=== PATIENT | male | born 1995 | race Caucasian/White ===

== ENCOUNTER 2020-07-08 07:13 | Emergency (ER) | payer OTHER, SELFPAY ==
[2020-07-08 08:23] VITALS: BP 185/95; PULSE 112; RESP 16; TEMP 37.1; O2SAT 99; BMI 31.3
--- NOTE | 2020-07-08 08:30 | ED.ABDPAIN ---
HPI - Abdominal Pain General Chief Complaint: Abdominal Pain Stated Complaint: abd pain,vomiting Time Seen by Provider: 07/08/20 08:29 Source: patient Mode of arrival: ambulatory Limitations: no limitations History of Present Illness MD elicited complaint: abdominal pain Pertinent past history: other (pancreatitis) Onset (ago): day(s) (2) Pain Consistency: constant Location: epigastric Severity: similar to previous episodes Quality: stabbing Radiation: epigastric Migration to: no migration Exacerbating factors: vomiting and movement Relieving factors: nothing Context: history of similar episodes and other (drank for 2 days prior) Associated symptoms: nausea and vomiting Related Data Previous Rx's Medication Instructions Recorded chlordiazepoxide HCl 25 mg PO Q6-8H PRN #20 cap 07/08/20 famotidine [Pepcid] 20 mg PO DAILY PRN #30 tab 07/08/20 magnesium oxide 400 mg PO DAILY 10 Days #10 tab 07/08/20 ondansetron 4 mg PO Q8H PRN #20 tab 07/08/20 Allergies Allergy/AdvReac Type Severity Reaction Status Date / Time No Known Allergies Allergy Verified 07/08/20 08:36 Review of Systems Review of Systems Constitutional : No Weight loss, No Fever, No Chills ENT/Mouth : No sore throat, No Rhinorrhea Eyes: No Swelling, No Redness Cardiovascular : No Chest Pain, No SOB, NoEdema Respiratory : No Cough, No Sputum, No Wheezing Gastrointestinal : Positive Nausea, Positive Vomiting, no Diarrhea, positive abdominal Pain, No Hematochezia, No Melena Genitourinary : No Dysuria, No Urinary Frequency, No Hematuria, No Urgency Musculoskeletal : No joint pain, No Myalgias, No Joint Swelling Skin : No Skin Lesions, No rash Neuro : No Weakness, No Numbness, No Dizziness, No Headache Psych : No Anxiety/Panic, No Depression Heme/Lymph: No Bruising, No Lymphadenopathy Endocrine : No Polyuria, No Polydipsia All other systems reviewed and are negative. Physical Exam Vital Signs: Vital Signs: Last Vital Signs Temp 98.8 F 07/08/20 08:23 Pulse 123 H 07/08/20 11:02 Resp 18 07/08/20 11:02 BP 147/75 H 07/08/20 11:02 Pulse Ox 99 07/08/20 08:23 Body Mass Index 31.3 Appearance: Alert. Oriented X3. active vomiting, mild acute distress. Eyes: Pupils equal, round and reactive to light. ENT: Pharynx normal. Neck: Normal inspection. Neck supple. CVS: Normal heart rate and rhythm. Pulses normal. Respiratory: No respiratory distress. Breath sounds normal. Abdomen: Soft and moderate epigastric ttp Skin: Skin warm and dry. Normal skin color. Normal skin turgor. Extremities: No lower extremity edema. No calf ttp Neuro: Oriented X 3. No motor deficit. No sensory deficit. Course Course Course Narrative: feels better, can tolerate PO stable for DC, no anxiety, no tremors, VS improved MDM - Abdominal Pain MDM Narrative Medical decision making narrative: 24 yo male with hx of pancreatitis, denies alcoholism but did drink two days prior to epigastric pain and vomiting starting will need labs, IVF, CT scan for pancreatitis, IV morphine for pain, dispo per results and findings Lab Data Result diagrams: 07/08/20 08:48 07/08/20 08:47 Labs: Lab Results 07/08/20 07/08/20 07/08/20 Range/Units 08:47 08:47 08:48 WBC 8.9 (4.8-10.8) X10*3/uL RBC 5.81 H (4.60-5.80) X10*6/uL Hgb 16.8 (14.0-18.0) g/dl Hct 52.7 H (42-52) % MCV 90.7 (80-98) fL MCH 28.9 (27.0-33.0) pg MCHC 31.9 (31.0-36.0) g/dl RDW 15.6 (11.0-16.0) % Plt Count 395 (160-400) X10*3/uL MPV 9.2 L (9.4-12.4) fL Immature Gran % (Auto) 0.9 H (0.0-0.4) % Neut % (Auto) 88.3 H (45-73) % Lymph % (Auto) 6.5 L (20-40) % [place] % (Auto) 3.1 (2-11) % Eos % (Auto) 0.0 (0-4) % Baso % (Auto) 1.2 (0-2) % Lymph # (Auto) 0.6 L (1.2-4.9) X10*3/uL [place] # (Auto) 0.3 (0.1-1.2) X10*3/uL Eos # (Auto) 0.0 (0.0-0.4) X10*3/uL Baso # (Auto) 0.1 (0.0-0.2) X10*3/uL Abs Immat Gran (auto) 0.08 H (0.00-0.03) X10*3/uL Absolute Neuts (auto) 7.9 (2.0-8.3) X10*3/uL Absolute Nucleated RBC 0.000 (0.0-0.012) X10*3/uL Nucleated RBC % (auto) 0.0 (0.0-0.2) /100WBC Hold Blue Top Sodium 140 (135-145) mmol/L Potassium 5.6 H (3.3-5.1) mmol/l Chloride 100 (96-108) mmol/L Carbon Dioxide 25 (22-29) mmol/L Anion Gap 21 H (12-20) BUN 8 L (9-16) mg/dL Creatinine 1.03 (0.5-1.4) mg/dL Estim Creat Clear Calc 116.7 Estimated GFR > 60 Random Glucose 149 H (60-115) mg/dL Calcium 9.3 (8.4-10.2) mg/dL Magnesium 1.3 L* (1.6-2.6) mg/dL Total Bilirubin 0.6 (0.0-1.0) mg/dL Direct Bilirubin 0.3 (0.0-0.5) mg/dL AST 43 H (5-37) U/L ALT 47 H (0-40) U/L Alkaline Phosphatase 49 (39-117) U/L Lactate Dehydrogenase 260 (118-273) U/L Total Protein 7.2 (6.5-8.0) g/dL Albumin 4.7 (3.5-5.0) g/dL Lipase 42 (8-78) U/L Ethyl Alcohol < 10 mg/dL 07/08/20 Range/Units 08:48 WBC (4.8-10.8) X10*3/uL RBC (4.60-5.80) X10*6/uL Hgb (14.0-18.0) g/dl Hct (42-52) % MCV (80-98) fL MCH (27.0-33.0) pg MCHC (31.0-36.0) g/dl RDW (11.0-16.0) % Plt Count (160-400) X10*3/uL MPV (9.4-12.4) fL Immature Gran % (Auto) (0.0-0.4) % Neut % (Auto) (45-73) % Lymph % (Auto) (20-40) % [place] % (Auto) (2-11) % Eos % (Auto) (0-4) % Baso % (Auto) (0-2) % Lymph # (Auto) (1.2-4.9) X10*3/uL [place] # (Auto) (0.1-1.2) X10*3/uL Eos # (Auto) (0.0-0.4) X10*3/uL Baso # (Auto) (0.0-0.2) X10*3/uL Abs Immat Gran (auto) (0.00-0.03) X10*3/uL Absolute Neuts (auto) (2.0-8.3) X10*3/uL Absolute Nucleated RBC (0.0-0.012) X10*3/uL Nucleated RBC % (auto) (0.0-0.2) /100WBC Hold Blue Top SEE NOTE Sodium (135-145) mmol/L Potassium (3.3-5.1) mmol/l Chloride (96-108) mmol/L Carbon Dioxide (22-29) mmol/L Anion Gap (12-20) BUN (9-16) mg/dL Creatinine (0.5-1.4) mg/dL Estim Creat Clear Calc Estimated GFR Random Glucose (60-115) mg/dL Calcium (8.4-10.2) mg/dL Magnesium (1.6-2.6) mg/dL Total Bilirubin (0.0-1.0) mg/dL Direct Bilirubin (0.0-0.5) mg/dL AST (5-37) U/L ALT (0-40) U/L Alkaline Phosphatase (39-117) U/L Lactate Dehydrogenase (118-273) U/L Total Protein (6.5-8.0) g/dL Albumin (3.5-5.0) g/dL Lipase (8-78) U/L Ethyl Alcohol mg/dL Discharge Plan Discharge Clinical Impression: Hypomagnesemia Vomiting Qualifiers: Vomiting type: unspecified Vomiting Intractability: non-intractable Nausea presence: with nausea Qualified Code(s): R11.2 - Nausea with vomiting, unspecified Gastritis Qualifiers: Gastritis type: alcoholic Chronicity: acute Gastritis bleeding: without bleeding Qualified Code(s): K29.20 - Alcoholic gastritis without bleeding Patient Disposition: Home, Self-Care Instructions: Gastritis (ED), Hypomagnesemia (ED) Additional Instructions: return to ED for any worsening symptoms or concerns please follow up with your doctor Prescriptions: New ondansetron 4 mg tablet,disintegrating 4 mg PO Q8H PRN (Reason: nausea and vomiting) Qty: 20 RF: 0 famotidine [Pepcid] 20 mg tablet 20 mg PO DAILY PRN (Reason: abdominal discomfort) Qty: 30 RF: 0 chlordiazepoxide HCl 25 mg capsule 25 mg PO Q6-8H PRN (Reason: alcohol withdrawal) Qty: 20 RF: 0 magnesium oxide 400 mg magnesium tablet 400 mg PO DAILY 10 Days Qty: 10 RF: 0 Stand Alone Forms: Work/School Release [facility] Past Medical History Attestation statement: The following information was validated with the patient. Medical History Pancreatitis Social History Social History (Updated 07/08/20 @ 08:42 by Margaret Romero DO) Alcohol intake: current Smoking Status: Current every day smoker Advance Directives: No Advance Directives Information Provided: Yes
--- NOTE | 2020-07-08 08:36 | CT_ITS ---
EXAMINATION: CT ABDOMEN AND PELVIS WITH CONTRAST CLINICAL INFORMATION: Vomiting. Upper abdominal pain. COMPARISON: None TECHNIQUE: Multidetector volumetric images were obtained from the superior aspect of the liver through the pubic symphysis following administration 85 mL of Omnipaque 350 intravenous contrast. Sagittal and coronal reformatted images were obtained on the technologist's workstation. Oral contrast: No This CT examination was performed using dose optimization techniques as appropriate, variously including the following: *Automated exposure control *Adjustment of mA and/or kV according to patient size (this includes techniques or standardized protocols for targeted exams where dose is matched to indication/reason for exam; i.e. extremities or head) *Use of iterative reconstruction technique DLP: 488 mGy-cm FINDINGS: LUNG BASES: The visualized lung bases are unremarkable. LIVER, GALLBLADDER, AND BILIARY TREE: The liver is normal in size, shape, and attenuation. No focal hepatic lesion or biliary ductal dilatation is present. The gallbladder is unremarkable with no evidence of radiopaque gallstones, gallbladder wall thickening, or obvious pericholecystic inflammatory changes. PANCREAS: Unremarkable. SPLEEN: Unremarkable. ADRENAL GLANDS: Unremarkable. KIDNEYS AND URETERS: The kidneys are normal in size and shape. High attenuation noted throughout the medullary pyramids of both kidneys, which may represent medullary nephrocalcinosis. No hydronephrosis, hydroureter, or calculi seen. No perinephric stranding. BLADDER: Unremarkable. GASTROINTESTINAL TRACT: The stomach is unremarkable. Normal caliber small bowel. There is no obstruction. Normal appendix. No colonic wall thickening or acute inflammatory changes. No free air or free fluid. ABDOMINAL WALL: No significant hernia is appreciated. LYMPH NODES: Normal. VASCULAR: Unremarkable. PELVIC VISCERA: The prostate and seminal vesicles are unremarkable. OSSEOUS STRUCTURES: Unremarkable. CT/CT abdomen pelvis w con IMPRESSION: No acute findings of the abdomen or pelvis. No inflammatory changes. High attenuation seen involving the medullary pyramids of both kidneys. This may represent medullary nephrocalcinosis.
[2020-07-08] MEDS: 0.9 % Sodium Chloride 1,000 ML 999 ML IVCONT ×2 (08:54→11:20)
[2020-07-08 08:56] LABS: Basophils Absolute Auto 0.1 X10*3/uL (0.0-0.2); Basophils Percent Auto 1.2 % (0-2); Hematocrit 52.7 % (42-52); Hemoglobin 16.8 g/dl (14.0-18.0); Imm Gran Abs Auto 0.08 X10*3/uL (0.00-0.03); Imm Gran Pct Auto 0.9 % (0.0-0.4); Lymphocytes Absolute Auto 0.6 X10*3/uL (1.2-4.9); Lymphocytes Percent Auto 6.5 % (20-40); MANUAL DIFF FLAG NO; Mean Corpuscular HGB Conc 31.9 g/dl (31.0-36.0); Mean Corpuscular Hemoglobin 28.9 pg (27.0-33.0); Mean Corpuscular Volume 90.7 fL (80-98); Mean Platelet Volume 9.2 fL (9.4-12.4); Monocytes Absolute Auto 0.3 X10*3/uL (0.1-1.2); Monocytes Percent Auto 3.1 % (2-11); Neutrophils Absolute Auto 7.9 X10*3/uL (2.0-8.3); Neutrophils Percent Auto 88.3 % (45-73); Platelet Count 395 X10*3/uL (160-400); Red Blood Count 5.81 X10*6/uL (4.60-5.80); Red Cell Distribution Width 15.6 % (11.0-16.0); SCAN SMEAR FLAG 1; White Blood Count 8.9 X10*3/uL (4.8-10.8)
[2020-07-08 08:57] VITALS: RESP 16
[2020-07-08] MEDS: Morphine Sulfate 4 MG/ML CARTRIDGE IVPUSH (08:57)
[2020-07-08] MEDS: LORazepam 2 MG/ML VIAL 1 MG IVPUSH (08:58)
[2020-07-08] MEDS: ondansetron HCL 4 MG/2 ML VIAL IVPUSH (08:58)
--- NOTE | 2020-07-08 09:08 | PC.NURSE ---
IV FLUIDS STARTED, MEDICATED PER MD ORDERS
[2020-07-08 09:20] VITALS: BP 162/80; PULSE 111; RESP 16
[2020-07-08 09:30] LABS: Ethanol < 10 mg/dL
[2020-07-08 10:07] LABS: Alanine Aminotransferase 47 U/L (0-40); Albumin Level 4.7 g/dL (3.5-5.0); Alkaline Phosphatase 49 U/L (39-117); Anion Gap 21 (12-20); Aspartate Amino Transferase 43 U/L (5-37); Bilirubin Direct 0.3 mg/dL (0.0-0.5); Bilirubin Total 0.6 mg/dL (0.0-1.0); Blood Urea Nitrogen 8 mg/dL (9-16); Calcium 9.3 mg/dL (8.4-10.2); Carbon Dioxide 25 mmol/L (22-29); Chloride 100 mmol/L (96-108); Creatinine Clr Calc Pharmacy 116.7; Estimated Glomerular Filt Rate > 60; Glucose Random 149 mg/dL (60-115); Lactate Dehydrogenase 260 U/L (118-273); Lipase 42 U/L (8-78); Magnesium 1.3 mg/dL (1.6-2.6); Potassium 5.6 mmol/l (3.3-5.1); Sodium 140 mmol/L (135-145); Total Protein 7.2 g/dL (6.5-8.0)
[2020-07-08] MEDS: iohexoL 350 MG/ML 100 ML INFUS..BTL IV (10:24)
[2020-07-08 11:02] VITALS: BP 147/75; PULSE 123; RESP 18
[2020-07-08 11:21] VITALS: BP 161/90; PULSE 115; RESP 18; TEMP 36.8; O2SAT 98
[2020-07-08] MEDS: Magnesium Sulfate/H2O 2 GM/50 ML PIGGYBACK IV (11:21)
[2020-07-08 12:59] VITALS: BP 121/71; PULSE 100; RESP 16; TEMP 36.6; O2SAT 99
== END 2020-07-08 13:01 | disposition home or self-care (01) ==
PROVIDERS: Emergency Provider Emergency Medicine; PCP Obstetrics & Gynecology
DX: E83.41 Hypermagnesemia (principal); K29.20 Alcoholic gastritis without bleeding; R11.2 Nausea with vomiting, unspecified; R10.13 Epigastric pain; Z79.899 Other long term (current) drug therapy
CPT/HCPCS: 36415; 74177; 80048; 80076; 80320; 83615; 83690; 83735; 85025; 96361; 96365; 96375; 99284; J2060; J2270; J2405; J3475; Q9967

== ENCOUNTER 2020-08-03 06:31 | Emergency (ER) | payer OTHER, SELFPAY ==
[2020-08-03 06:34] VITALS: BP 198/110; PULSE 91; RESP 18; TEMP 36.7; O2SAT 97; BMI 31.4
--- NOTE | 2020-08-03 07:02 | PC.NURSE ---
Pt ambulating into room 7 with a laureano/steady gait. Per pt, he is a binge drinker and recently had pancreatitis in May r/t alcohol. Pt reports increased stress lately with increased binge drinking. Pt c/o epigastric pain radiating into back x 2 days with persistent vomiting and diarrhea. IV established, labs obtained. Pt attempting to provide urine sample. Report given to Mary.
--- NOTE | 2020-08-03 07:21 | ED.ABDPAIN ---
HPI - Abdominal Pain General Chief Complaint: Abdominal Pain Stated Complaint: ABD PAIN Time Seen by Provider: 08/03/20 06:55 Source: patient Mode of arrival: ambulatory Limitations: no limitations History of Present Illness HPI narrative: Patient with 3 days of drinking alcohol, the pain is sharp and stabbing. Patient with history of alcoholic pancreatitis MD elicited complaint: abdominal pain Pertinent past history: gastritis Onset (ago): day(s) (3) Pain Consistency: constant Location: epigastric Severity: moderate Quality: stabbing Radiation: epigastric Exacerbating factors: other (alcohol) Associated symptoms: nausea and vomiting Related Data Previous Rx's Medication Instructions Recorded chlordiazepoxide HCl 25 mg PO Q6-8H PRN #20 cap 07/08/20 famotidine [Pepcid] 20 mg PO DAILY PRN #30 tab 07/08/20 magnesium oxide 400 mg PO DAILY 10 Days #10 tab 07/08/20 ondansetron 4 mg PO Q8H PRN #20 tab 07/08/20 pantoprazole [Protonix] 40 mg PO DAILY #20 tab 08/03/20 Allergies Allergy/AdvReac Type Severity Reaction Status Date / Time No Known Allergies Allergy Verified 07/08/20 08:36 Review of Systems Constitutional: Reports no additional constitutional complaints Eyes: Reports no additional eye complaints Denies dizziness Cardiovascular: Reports no additional cardiovascular complaints Respiratory: Reports as per HPI Gastrointestinal: Reports no additional gastrointestinal complaints Musculoskeletal: Reports no additional musculoskeletal complaints Skin/Breast: Denies rash Reports system reviewed and no additional complaints, except as documented, Denies dizziness and Denies Sensory deficit (Neuro) Psychiatric: Denies anxiety Physical Exam Vital Signs: Vital Signs: Last Vital Signs Temp 98.1 F 08/03/20 06:34 Pulse 88 08/03/20 08:12 Resp 18 08/03/20 08:12 BP 158/83 H 08/03/20 08:12 Pulse Ox 98 08/03/20 08:12 Body Mass Index 31.4 Const: General: healthy appearing Nutritional Appearance: average body habitus Orientation/consciousness: oriented to person and patient oriented x3 Limitations: no limitations HENMT: Head: Yes normal to inspection Ears: external ears normal General nose exam: Normal external nose present Mouth: Normal oral and palatal mucosa present and oropharynx normal Throat: Yes posterior oropharynx normal Eyes: General: appearance normal, both eyes and all related structures Neck: Other: supple Neck: Yes normal visual inspection Chest: Chest palpation & inspection: normal inspection of the chest Resp: Auscultation: clear to auscultation bilaterally Cardio: Jugular venous distension: no JVD Rate: regular rate Rhythm: regular rhythm Heart sounds: S1 normal heart sound present and S2 normal heart sound present GI: Inspection: Yes normal to inspection Palpation (GI): Soft to palpation, nontender and No hepatosplenomegaly present Auscultation: normal bowel sounds : General: Yes no CVA tenderness Back/Spine/Pelvis: Back: no CVA tenderness Skin: General skin exam: no rashes or lesions noted Neuro: General: oriented to person and patient oriented x3 Cranial nerves: Yes CN's II-XII intact bilaterally Motor exam (neuro): 5/5 motor strength present throughout Sensory Exam: No Sensory deficit (Neuro) Extrem: General: Yes normal to inspection Psych: Appearance: grossly normal Course Course Course Narrative: labs normal, physical exam normal will dc home MDM - Abdominal Pain MDM Narrative Medical decision making narrative: With normal labs will dc home with alcholic gastritis Differential Diagnosis Differential diagnosis: Likely abdominal pain, gastritis and pancreatitis Differential diagnosis narrative:: alcoholic hepatitis Lab Data Result diagrams: 08/03/20 07:21 08/03/20 07:21 Labs: Lab Results 08/03/20 08/03/20 08/03/20 Range/Units 07:21 07:21 07:21 WBC 11.6 H (4.8-10.8) X10*3/uL RBC 5.41 (4.60-5.80) X10*6/uL Hgb 15.9 (14.0-18.0) g/dl Hct 48.8 (42-52) % MCV 90.2 (80-98) fL MCH 29.4 (27.0-33.0) pg MCHC 32.6 (31.0-36.0) g/dl RDW 15.9 (11.0-16.0) % Plt Count 321 (160-400) X10*3/uL MPV 10.3 (9.4-12.4) fL Immature Gran % (Auto) 0.7 H (0.0-0.4) % Neut % (Auto) 83.9 H (45-73) % Lymph % (Auto) 7.8 L (20-40) % [place] % (Auto) 6.6 (2-11) % Eos % (Auto) 0.2 (0-4) % Baso % (Auto) 0.8 (0-2) % Lymph # (Auto) 0.9 L (1.2-4.9) X10*3/uL [place] # (Auto) 0.8 (0.1-1.2) X10*3/uL Eos # (Auto) 0.0 (0.0-0.4) X10*3/uL Baso # (Auto) 0.1 (0.0-0.2) X10*3/uL Abs Immat Gran (auto) 0.08 H (0.00-0.03) X10*3/uL Absolute Neuts (auto) 9.7 H (2.0-8.3) X10*3/uL Absolute Nucleated RBC 0.000 (0.0-0.012) X10*3/uL Nucleated RBC % (auto) 0.0 (0.0-0.2) /100WBC Hold Blue Top SEE NOTE Sodium 139 (135-145) mmol/L Potassium 4.7 (3.3-5.1) mmol/l Chloride 99 (96-108) mmol/L Carbon Dioxide 29 (22-29) mmol/L Anion Gap 16 (12-20) BUN 10 (9-16) mg/dL Creatinine 1.22 (0.5-1.4) mg/dL Estim Creat Clear Calc 98.8 Estimated GFR > 60 Random Glucose 95 D (60-115) mg/dL Calcium 8.4 D (8.4-10.2) mg/dL Total Bilirubin 2.2 H (0.0-1.0) mg/dL AST 31 (5-37) U/L ALT 29 (0-40) U/L Alkaline Phosphatase 57 (39-117) U/L Total Protein 6.6 (6.5-8.0) g/dL Albumin 4.3 (3.5-5.0) g/dL Lipase 24 (8-78) U/L Urine Color Urine Appearance Urine pH (5.0-8.0) Ur Specific [place] (1.005-1.025) Urine Protein (NEG-TRACE) MG/DL Urine Glucose (UA) (NEG) MG/DL Urine Ketones (NEG) MG/DL Urine Blood (NEG) Urine Nitrite (NEG) Ur Leukocyte Esterase (NEG) 08/03/20 Range/Units 07:21 WBC (4.8-10.8) X10*3/uL RBC (4.60-5.80) X10*6/uL Hgb (14.0-18.0) g/dl Hct (42-52) % MCV (80-98) fL MCH (27.0-33.0) pg MCHC (31.0-36.0) g/dl RDW (11.0-16.0) % Plt Count (160-400) X10*3/uL MPV (9.4-12.4) fL Immature Gran % (Auto) (0.0-0.4) % Neut % (Auto) (45-73) % Lymph % (Auto) (20-40) % [place] % (Auto) (2-11) % Eos % (Auto) (0-4) % Baso % (Auto) (0-2) % Lymph # (Auto) (1.2-4.9) X10*3/uL [place] # (Auto) (0.1-1.2) X10*3/uL Eos # (Auto) (0.0-0.4) X10*3/uL Baso # (Auto) (0.0-0.2) X10*3/uL Abs Immat Gran (auto) (0.00-0.03) X10*3/uL Absolute Neuts (auto) (2.0-8.3) X10*3/uL Absolute Nucleated RBC (0.0-0.012) X10*3/uL Nucleated RBC % (auto) (0.0-0.2) /100WBC Hold Blue Top Sodium (135-145) mmol/L Potassium (3.3-5.1) mmol/l Chloride (96-108) mmol/L Carbon Dioxide (22-29) mmol/L Anion Gap (12-20) BUN (9-16) mg/dL Creatinine (0.5-1.4) mg/dL Estim Creat Clear Calc Estimated GFR Random Glucose (60-115) mg/dL Calcium (8.4-10.2) mg/dL Total Bilirubin (0.0-1.0) mg/dL AST (5-37) U/L ALT (0-40) U/L Alkaline Phosphatase (39-117) U/L Total Protein (6.5-8.0) g/dL Albumin (3.5-5.0) g/dL Lipase (8-78) U/L Urine Color YELLOW Urine Appearance CLEAR Urine pH 8.0 (5.0-8.0) Ur Specific [place] 1.015 (1.005-1.025) Urine Protein NEG (NEG-TRACE) MG/DL Urine Glucose (UA) NEG (NEG) MG/DL Urine Ketones NEG (NEG) MG/DL Urine Blood NEG (NEG) Urine Nitrite NEG (NEG) Ur Leukocyte Esterase NEG (NEG) Discharge Plan Discharge Clinical Impression: Gastritis Qualifiers: Gastritis type: alcoholic Chronicity: acute Gastritis bleeding: without bleeding Qualified Code(s): K29.20 - Alcoholic gastritis without bleeding Patient Disposition: Home, Self-Care Instructions: Gastritis (ED) Additional Instructions: stop drinking alcohol Prescriptions: New pantoprazole [Protonix] 40 mg tablet,delayed release (DR/EC) 40 mg PO DAILY Qty: 20 RF: 0 No Action ondansetron 4 mg tablet,disintegrating 4 mg PO Q8H PRN (Reason: nausea and vomiting) Qty: 20 RF: 0 famotidine [Pepcid] 20 mg tablet 20 mg PO DAILY PRN (Reason: abdominal discomfort) Qty: 30 RF: 0 chlordiazepoxide HCl 25 mg capsule 25 mg PO Q6-8H PRN (Reason: alcohol withdrawal) Qty: 20 RF: 0 magnesium oxide 400 mg magnesium tablet 400 mg PO DAILY 10 Days Qty: 10 RF: 0 PMFSH Past Medical History Medical History Pancreatitis Social History Social History Alcohol intake: current Alcohol intake frequency: a few times a week Smoking Status: Never smoker Use of substances other than those prescribed or required for medical reasons: No Substance Use Type: Marijuana Advance Directives: No Advance Directives Information Provided: Yes
--- NOTE | 2020-08-03 07:24 | PC.NURSE ---
pt alert and oriented, skin pwd, respirations even and unlabored, pt reports epigastric pain for about three days, vomiting and loose stools, pt states that he binge drinks last drink about two days ago, was drink hard liqueur, slight visible hand tremor but pt not sure if he is anxious because has some stresses in life at this time
[2020-08-03 07:28] LABS: Basophils Absolute Auto 0.1 X10*3/uL (0.0-0.2); Basophils Percent Auto 0.8 % (0-2); Eosinophils Percent Auto 0.2 % (0-4); Hematocrit 48.8 % (42-52); Hemoglobin 15.9 g/dl (14.0-18.0); Imm Gran Abs Auto 0.08 X10*3/uL (0.00-0.03); Imm Gran Pct Auto 0.7 % (0.0-0.4); Lymphocytes Absolute Auto 0.9 X10*3/uL (1.2-4.9); Lymphocytes Percent Auto 7.8 % (20-40); Mean Corpuscular HGB Conc 32.6 g/dl (31.0-36.0); Mean Corpuscular Hemoglobin 29.4 pg (27.0-33.0); Mean Corpuscular Volume 90.2 fL (80-98); Mean Platelet Volume 10.3 fL (9.4-12.4); Monocytes Absolute Auto 0.8 X10*3/uL (0.1-1.2); Monocytes Percent Auto 6.6 % (2-11); Neutrophils Absolute Auto 9.7 X10*3/uL (2.0-8.3); Neutrophils Percent Auto 83.9 % (45-73); Platelet Count 321 X10*3/uL (160-400); Red Blood Count 5.41 X10*6/uL (4.60-5.80); Red Cell Distribution Width 15.9 % (11.0-16.0); White Blood Count 11.6 X10*3/uL (4.8-10.8)
[2020-08-03 07:30] LABS: MANUAL DIFF FLAG NO
[2020-08-03 07:33] LABS: Glucose Urine UA NEG (NEG); Leukocyte Esterase Urine NEG (NEG); Nitrite Urine NEG (NEG); Specific Gravity - Urine 1.015 (1.005-1.025); Urine Blood NEG (NEG); Urine Ketones NEG (NEG); Urine Protein NEG (NEG-TRACE)
[2020-08-03] MEDS: Pantoprazole Sodium 40 MG/10 ML VIAL IVPUSH (07:34)
[2020-08-03] MEDS: 0.9 % Sodium Chloride 1,000 ML 999 ML IVCONT (07:34)
[2020-08-03] MEDS: ondansetron HCL 4 MG/2 ML VIAL IVPUSH (07:34)
[2020-08-03 07:35] LABS: Appearance Urine CLEAR; Color Urine YELLOW
[2020-08-03 07:59] LABS: Carbon Dioxide 29 mmol/L (22-29); Chloride 99 mmol/L (96-108); Potassium 4.7 mmol/l (3.3-5.1); Sodium 139 mmol/L (135-145)
[2020-08-03 08:00] LABS: Alanine Aminotransferase 29 U/L (0-40); Albumin Level 4.3 g/dL (3.5-5.0); Alkaline Phosphatase 57 U/L (39-117); Anion Gap 16 (12-20); Aspartate Amino Transferase 31 U/L (5-37); Bilirubin Total 2.2 mg/dL (0.0-1.0); Blood Urea Nitrogen 10 mg/dL (9-16); Calcium 8.4 mg/dL (8.4-10.2); Creatinine Clr Calc Pharmacy 98.8; Estimated Glomerular Filt Rate > 60; Glucose Random 95 mg/dL (60-115); Lipase 24 U/L (8-78); Total Protein 6.6 g/dL (6.5-8.0)
[2020-08-03 08:12] VITALS: BP 158/83; PULSE 88; RESP 18; O2SAT 98
--- NOTE | 2020-08-03 08:22 | PC.NURSE ---
pt reports feeling better, pain at 5/10, nausea improved as well
== END 2020-08-03 09:01 | disposition home or self-care (01) ==
PROVIDERS: Emergency Provider Emergency Medicine
DX: K29.20 Alcoholic gastritis without bleeding (principal); R10.13 Epigastric pain; F12.90 Cannabis use, unspecified, uncomplicated; Z79.899 Other long term (current) drug therapy
CPT/HCPCS: 36415; 80053; 81003; 83690; 85025; 96361; 96374; 96375; 99284; J2405

== ENCOUNTER 2020-08-12 18:00 | Emergency (ER) | payer OTHER, SELFPAY ==
--- NOTE | 2020-08-12 | ECG_ITS ---
Test Reason : CP,TINGLING Blood Pressure : / mmHG Vent. Rate : 122 BPM Atrial Rate : 122 BPM P-R Int : 152 ms QRS Dur : 080 ms QT Int : 324 ms P-R-T Axes : 055 077 036 degrees QTc Int : 461 ms Sinus tachycardia Possible Left atrial enlargement Borderline ECG No previous ECGs available Referred By: Generic ED Physician Electronically Signed By:MIRYAM WILL MD
[2020-08-12 19:15] VITALS: BP 179/86; PULSE 124; RESP 18; TEMP 37.1; O2SAT 98; BMI 31.3
[2020-08-12] MEDS: 0.9 % Sodium Chloride 1,000 ML 999 ML IVCONT (20:23)
[2020-08-12] MEDS: Famotidine/PF 20 MG/2 ML VIAL IVPUSH (20:23)
[2020-08-12] MEDS: ondansetron HCL 4 MG/2 ML VIAL IVPUSH (20:23)
[2020-08-12] MEDS: Magnesium Hydrox/Alum Hydrox 30 ML ORAL.SUSP PO (20:23)
--- NOTE | 2020-08-12 20:28 | ED_ITS ---
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 Patient stated that the pain is localized to the epigastric area with no radiation started since yesterday, pain is constant, described it as severe 04/29, pain radiates to upper chest and throat, nothing makes the pain worse or relieves the pain. Related Data Previous Rx's Medication Instructions Recorded chlordiazepoxide HCl 25 mg PO Q6-8H PRN #20 cap 07/08/20 famotidine [Pepcid] 20 mg PO DAILY PRN #30 tab 07/08/20 magnesium oxide 400 mg PO DAILY 10 Days #10 tab 07/08/20 ondansetron 4 mg PO Q8H PRN #20 tab 07/08/20 pantoprazole [Protonix] 40 mg PO DAILY #20 tab 08/03/20 Allergies Allergy/AdvReac Type Severity Reaction Status Date / Time No Known Allergies Allergy Verified 07/08/20 08:36 Review of Systems Review of Systems All other systems are reviewed and are negative Constitutional: Reports as per HPI and Reports no additional constitutional complaints Eyes: Reports as per HPI and Reports no additional eye complaints Reports system reviewed and no additional complaints, except as documented Cardiovascular: Reports as per HPI and Reports no additional cardiovascular complaints Respiratory: Reports as per HPI and Reports no additional respiratory complaints Gastrointestinal: Reports as per HPI and Reports no additional gastrointestinal complaints Genitourinary: Reports no additional female genitourinary complaints Musculoskeletal: Reports no additional musculoskeletal complaints Skin/Breast: Reports system reviewed and no additional complaints, except as docu Psychiatric: Reports no additional psychiatric complaints Endocrine: Reports no additional endocrine complaints Hematologic/Lymphatic: Reports no additional hematologic/lymphatic complaints Allergic/Immunologic: Reports no additional allergic/immunologic complaints Reports system reviewed and no additional complaints, except as documented and Reports Abnormal speech present Physical Exam Vital Signs: Vital Signs: Last Vital Signs Temp 99.0 F 08/12/20 22:00 Pulse 107 H 12/24/20 22:00 Resp 16 08/12/20 22:00 BP 166/88 H 08/12/20 22:00 Pulse Ox 99 08/12/20 22:00 Body Mass Index 31.3 Vital signs have been reviewed as normal and appeared to be correct. Blood pressure in the high range. Tachycardia. Respiration rate normal. Temperature normal. Oxygen saturation normal. Appearance: Alert. Oriented X3. No acute distress. Head: Normal external exam. Normocephalic. Atraumatic. No Mckeon signs noted. No raccoon eyes noted Eyes: PERRLA. EOMI. Conjunctiva and sclera normal. Eyelids normal. ENT: EAC normal. TM's Normal. Pharynx normal. Uvula midline. Moist mucous membranes. No trismus noted. No drooling noted. No muffled voice noted. Neck: Normal inspection. Neck supple. FROM. No adenopathy. Thyroid Normal. No meningeal signs. No neck mass noted. CVS: Normal heart rate and rhythm. Heart sound normal. No murmurs noted. Pulses normal throughout. Respiratory: No respiratory distress. Painless inspiration. Breath sounds normal. No wheezes/rales/rhonchi noted. Chest nontender. No accessory muscle usage noted or decreased air movement noted. Abdomen: Soft, mild epigastric tenderness, no rebound tenderness, no guarding. Bowel sounds normal in all 4 quadrants. No distention noted. No organomegaly noted. No visible injury noted. Back: No CVA tenderness. Full range of motion noted. Skin: Skin warm and dry. Normal skin color. Normal skin turgor. No rashes/lesions/lacerations noted. Extremities: No lower extremity edema. Extremities exhibit normal range of motion. Extremities nontender. Neuro: Oriented X 3. No motor deficit. No sensory deficit. Reflexes normal. Course Course Course Narrative: Assessment and plan. 24-year-old male history of recent alcohol drinking, patient is been having epigastric pain with many times vomiting, patient had elevated troponin with normal EKG, patient also had a CT of the abdomen pelvis which showed free air in the mediastinum (small amount), the case discussed with Dr. Ana Flores (thoracic surgeon) who recommended to get CT of the chest with Gastrografin contrast rule out esophageal perforation, patient now feels better with good appetite asking for food and p.o. intake, finding was discussed with the patient will keep the patient NPO until we get the CT of the chest done, will trend troponin. the case signed out to Dr Crawford for checking on CT and admit the patient. MDM - Abdominal Pain Lab Data Result diagrams: 08/12/20 20:22 08/12/20 20:22 Labs: Lab Results 08/12/20 08/12/20 08/12/20 Range/Units 20:22 20:22 20:22 WBC 12.0 H (4.8-10.8) X10*3/uL RBC 5.43 (4.60-5.80) X10*6/uL Hgb 16.2 (14.0-18.0) g/dl Hct 49.1 (42-52) % MCV 90.4 (80-98) fL MCH 29.8 (27.0-33.0) pg MCHC 33.0 (31.0-36.0) g/dl RDW 15.9 (11.0-16.0) % Plt Count 459 H D (160-400) X10*3/uL MPV 10.1 (9.4-12.4) fL Immature Gran % (Auto) 0.7 H (0.0-0.4) % Neut % (Auto) 89.1 H (45-73) % Lymph % (Auto) 5.3 L (20-40) % [place] % (Auto) 4.6 (2-11) % Eos % (Auto) 0.0 (0-4) % Baso % (Auto) 0.3 (0-2) % Lymph # (Auto) 0.6 L (1.2-4.9) X10*3/uL [place] # (Auto) 0.6 (0.1-1.2) X10*3/uL Eos # (Auto) 0.0 (0.0-0.4) X10*3/uL Baso # (Auto) 0.0 (0.0-0.2) X10*3/uL Abs Immat Gran (auto) 0.08 H (0.00-0.03) X10*3/uL Absolute Neuts (auto) 10.7 H (2.0-8.3) X10*3/uL Absolute Nucleated RBC 0.000 (0.0-0.012) X10*3/uL Nucleated RBC % (auto) 0.0 (0.0-0.2) /100WBC Smear Tech's Comments VERIFIED Sodium 138 (135-145) mmol/L Potassium 5.1 (3.3-5.1) mmol/l Chloride 95 L (96-108) mmol/L Carbon Dioxide 29 (22-29) mmol/L Anion Gap 19 (12-20) BUN 17 H D (9-16) mg/dL Creatinine 1.41 H (0.5-1.4) mg/dL Estim Creat Clear Calc 85.2 Estimated GFR > 60 Random Glucose 229 H D (60-115) mg/dL Calcium 8.8 (8.4-10.2) mg/dL Total Bilirubin 1.0 (0.0-1.0) mg/dL Direct Bilirubin 0.7 H (0.0-0.5) mg/dL AST 113 H (5-37) U/L ALT 104 H (0-40) U/L Alkaline Phosphatase 50 (39-117) U/L Troponin I High Sens 69.6 H (<3.5-35.0) ng/L Total Protein 7.2 (6.5-8.0) g/dL Albumin 4.8 (3.5-5.0) g/dL Lipase 18 (8-78) U/L Urine Color Urine Appearance Urine pH (5.0-8.0) Ur Specific [place] (1.005-1.025) Urine Protein (NEG-TRACE) MG/DL Urine Glucose (UA) (NEG) MG/DL Urine Ketones (NEG) MG/DL Urine Blood (NEG) Urine Nitrite (NEG) Ur Leukocyte Esterase (NEG) Urine RBC (0) /HPF Urine WBC (0-4) /HPF Ur Squamous Epith Cells /LPF Urine Bacteria /LPF 08/12/20 08/12/20 Range/Units 20:50 23:42 WBC (4.8-10.8) X10*3/uL RBC (4.60-5.80) X10*6/uL Hgb (14.0-18.0) g/dl Hct (42-52) % MCV (80-98) fL MCH (27.0-33.0) pg MCHC (31.0-36.0) g/dl RDW (11.0-16.0) % Plt Count (160-400) X10*3/uL MPV (9.4-12.4) fL Immature Gran % (Auto) (0.0-0.4) % Neut % (Auto) (45-73) % Lymph % (Auto) (20-40) % [place] % (Auto) (2-11) % Eos % (Auto) (0-4) % Baso % (Auto) (0-2) % Lymph # (Auto) (1.2-4.9) X10*3/uL [place] # (Auto) (0.1-1.2) X10*3/uL Eos # (Auto) (0.0-0.4) X10*3/uL Baso # (Auto) (0.0-0.2) X10*3/uL Abs Immat Gran (auto) (0.00-0.03) X10*3/uL Absolute Neuts (auto) (2.0-8.3) X10*3/uL Absolute Nucleated RBC (0.0-0.012) X10*3/uL Nucleated RBC % (auto) (0.0-0.2) /100WBC Smear Tech's Comments Sodium (135-145) mmol/L Potassium (3.3-5.1) mmol/l Chloride (96-108) mmol/L Carbon Dioxide (22-29) mmol/L Anion Gap (12-20) BUN (9-16) mg/dL Creatinine (0.5-1.4) mg/dL Estim Creat Clear Calc Estimated GFR Random Glucose (60-115) mg/dL Calcium (8.4-10.2) mg/dL Total Bilirubin (0.0-1.0) mg/dL Direct Bilirubin (0.0-0.5) mg/dL AST (5-37) U/L ALT (0-40) U/L Alkaline Phosphatase (39-117) U/L Troponin I High Sens 114.2 H D (<3.5-35.0) ng/L Total Protein (6.5-8.0) g/dL Albumin (3.5-5.0) g/dL Lipase (8-78) U/L Urine Color YELLOW Urine Appearance CLEAR Urine pH 7.0 (5.0-8.0) Ur Specific [place] 1.020 (1.005-1.025) Urine Protein 2+ H (NEG-TRACE) MG/DL Urine Glucose (UA) NEG (NEG) MG/DL Urine Ketones 15 (NEG) MG/DL Urine Blood NEG (NEG) Urine Nitrite NEG (NEG) Ur Leukocyte Esterase NEG (NEG) Urine RBC 0-2 (0) /HPF Urine WBC 0-2 (0-4) /HPF Ur Squamous Epith Cells NONE /LPF Urine Bacteria NONE /LPF ECG Data Interpretation: Sinus tachycardia at 120 beats per minutes, normal axis deviation, normal intervals, nonspecific T-wave flattening in leadII,III, V 6. Discharge Plan Discharge Prescriptions: No Action pantoprazole [Protonix] 40 mg tablet,delayed release (DR/EC) 40 mg PO DAILY Qty: 20 RF: 0 ondansetron 4 mg tablet,disintegrating 4 mg PO Q8H PRN (Reason: nausea and vomiting) Qty: 20 RF: 0 famotidine [Pepcid] 20 mg tablet 20 mg PO DAILY PRN (Reason: abdominal discomfort) Qty: 30 RF: 0 chlordiazepoxide HCl 25 mg capsule 25 mg PO Q6-8H PRN (Reason: alcohol withdrawal) Qty: 20 RF: 0 magnesium oxide 400 mg magnesium tablet 400 mg PO DAILY 10 Days Qty: 10 RF: 0 PMFSH Past Medical History Medical History Pancreatitis Social History Social History Alcohol intake: current Alcohol intake frequency: holidays/special occasions only Alcohol type: beer Smoking Status: Never smoker Use of substances other than those prescribed or required for medical reasons: No Substance Use Type: Marijuana Advance Directives: No Advance Directives Information Provided: No
[2020-08-12 20:29] VITALS: BP 160/86; PULSE 114; RESP 16; TEMP 37.1; O2SAT 97
[2020-08-12 20:36] LABS: Basophils Percent Auto 0.3 % (0-2); Hematocrit 49.1 % (42-52); Hemoglobin 16.2 g/dl (14.0-18.0); Imm Gran Abs Auto 0.08 X10*3/uL (0.00-0.03); Imm Gran Pct Auto 0.7 % (0.0-0.4); Lymphocytes Absolute Auto 0.6 X10*3/uL (1.2-4.9); Lymphocytes Percent Auto 5.3 % (20-40); MANUAL DIFF FLAG SCAN; Mean Corpuscular Hemoglobin 29.8 pg (27.0-33.0); Mean Corpuscular Volume 90.4 fL (80-98); Mean Platelet Volume 10.1 fL (9.4-12.4); Monocytes Absolute Auto 0.6 X10*3/uL (0.1-1.2); Monocytes Percent Auto 4.6 % (2-11); Neutrophils Absolute Auto 10.7 X10*3/uL (2.0-8.3); Neutrophils Percent Auto 89.1 % (45-73); Platelet Count 459 X10*3/uL (160-400); Red Blood Count 5.43 X10*6/uL (4.60-5.80); Red Cell Distribution Width 15.9 % (11.0-16.0); SCAN SMEAR FLAG 1
[2020-08-12 20:56] LABS: Alanine Aminotransferase 104 U/L (0-40); Albumin Level 4.8 g/dL (3.5-5.0); Alkaline Phosphatase 50 U/L (39-117); Anion Gap 19 (12-20); Aspartate Amino Transferase 113 U/L (5-37); Bilirubin Direct 0.7 mg/dL (0.0-0.5); Blood Urea Nitrogen 17 mg/dL (9-16); Calcium 8.8 mg/dL (8.4-10.2); Carbon Dioxide 29 mmol/L (22-29); Chloride 95 mmol/L (96-108); Creatinine Clr Calc Pharmacy 85.2; Estimated Glomerular Filt Rate > 60; Glucose Random 229 mg/dL (60-115); Lipase 18 U/L (8-78); Potassium 5.1 mmol/l (3.3-5.1); Sodium 138 mmol/L (135-145); Total Protein 7.2 g/dL (6.5-8.0)
[2020-08-12 21:00] LABS: Glucose Urine UA NEG (NEG); Leukocyte Esterase Urine NEG (NEG); Nitrite Urine NEG (NEG); Urine Blood NEG (NEG); Urine Ketones 15 MG/DL (NEG); Urine Protein 2+ MG/DL (NEG-TRACE)
[2020-08-12 21:01] LABS: Appearance Urine CLEAR; Color Urine YELLOW
[2020-08-12 21:03] LABS: Troponin-I High Sensitivity 69.6 ng/L (<3.5-35.0)
[2020-08-12 21:18] LABS: SLIDE REVIEW VERIFIED
[2020-08-12 21:19] LABS: RBC Urine 0-2 /HPF (0); WBC Urine 0-2 /HPF (0-4)
[2020-08-12 22:00] VITALS: BP 166/88; PULSE 107; RESP 16; TEMP 37.2; O2SAT 99
--- NOTE | 2020-08-12 22:13 | PC.NURSE ---
PT RESTING UPRIGHT IN BED, TOLERATING PO INTAKE W/OUT DIFFICULTY ATT. PT AWAITING REPEAT BLOODWORK, AWARE/AGREEABLE TO PLAN OF CARE.
--- NOTE | 2020-08-12 23:01 | CT_ITS ---
EXAMINATION: CT ABDOMEN AND PELVIS WITHOUT CONTRAST CLINICAL INFORMATION: Pain COMPARISON: 07/08/2020 TECHNIQUE: Multidetector volumetric imaging was performed from the superior aspect of the liver through the pubic symphysis. Sagittal and coronal reformatted images were obtained on the technologist's workstation. This CT examination was performed using dose optimization techniques as appropriate, variously including the following: *Automated exposure control *Adjustment of mA and/or kV according to patient size (this includes techniques or standardized protocols for targeted exams where dose is matched to indication/reason for exam; i.e. extremities or head) *Use of iterative reconstruction technique DLP: 513 mGy-cm FINDINGS: LUNG BASES: There is likely pneumomediastinum here. LIVER, GALLBLADDER, AND BILIARY TREE: The liver is normal in size, shape, and attenuation. No focal hepatic lesion or biliary ductal dilatation is present. Likely hyperdense sludge in the gallbladder PANCREAS: Pancreas is not well evaluated. There is adjacent unopacified bowel which greatly limits the exam. No free fluid in the area SPLEEN: Unremarkable. ADRENAL GLANDS: Unremarkable. KIDNEYS AND URETERS: The kidneys are normal in size, shape, and attenuation. No hydronephrosis, hydroureter, or calculi seen. No perinephric stranding. BLADDER: Unremarkable. GASTROINTESTINAL TRACT: The small and large bowel are unremarkable. The appendix is unremarkable. ABDOMINAL WALL: No significant hernia is appreciated. LYMPH NODES: Normal. VASCULAR: Unremarkable. PELVIC VISCERA: Unremarkable. OSSEOUS STRUCTURES: Unremarkable. CT/CT abdomen pelvis wo con IMPRESSION: This exam is abnormal. On the uppermost cuts there appears to be air within the mediastinum. Etiology is indeterminate. This areas extending down into the retrocrural region of the upper abdomen This critical result was discussed with dr Garcia at 12:16 AM on 08/13/2020 and it was ascertained that the content and urgency of the report was understood at the time of direct communication.
[2020-08-13 00:30] LABS: Troponin-I High Sensitivity 114.2 ng/L (<3.5-35.0)
[2020-08-13 01:26] VITALS: RESP 14; O2SAT 98
--- NOTE | 2020-08-13 01:26 | PC.NURSE ---
PATIENT SLEEPING COMFORTABLY AT THIS TIME. WILL CONTINUE TO MONITOR.
--- NOTE | 2020-08-13 01:57 | CT_ITS ---
EXAMINATION: CT CHEST WITH CONTRAST CLINICAL INFORMATION: Pain. Concern for esophageal perforation. COMPARISON: 08/12/2020. TECHNIQUE: Contiguous axial thin section helical images of the chest were performed following the administration of oral contrast and 85 mL of intravenous Omnipaque 350. The data set was reformatted in the coronal and sagittal planes and reviewed on an independent workstation. DLP: 379 mGy-cm. FINDINGS: The heart is of normal size. There is no pericardial effusion. There is neither mediastinal, hilar nor axillary lymphadenopathy. Following administration of oral contrast, no extravasation is noted from the esophagus. There are no chest wall masses. There is pneumomediastinum and pneumopericardium extending from the lower thorax into the neck bilaterally. There is also a tiny amount of gas within the upper spinae erector complex. Review of lung windows demonstrates that there are neither pleural effusions nor pneumothoraces. There are no consolidations. There are no pulmonary parenchymal nodules. The visualized upper abdomen demonstrates that the liver is of normal size and attenuation without focal lesions. Normal adrenal glands are identified. Bone windows: Neither sclerotic nor lytic bone lesions are identified. CT/CT chest w con IMPRESSION: Pneumomediastinum and pneumopericardium extending into the neck bilaterally without demonstrable pneumothorax. Following the administration of oral contrast, no contrast extravasation is demonstrable from the esophagus. Automated exposure control (Care Dose) Adjustment of the mA and/or kv according to patient size (this includes techniques or standardized protocols for targeted exams where dose is matched to indication / reason for exam; i.e. extremities or head).
[2020-08-13] MEDS: iohexoL 350 MG/ML 100 ML INFUS..BTL 65 ML IV (02:17)
[2020-08-13] MEDS: Diatrizoate Meglumine, Sodium 30 ML SOLUTION PO (02:19)
[2020-08-13] MEDS: Diatrizoate Meglumine, Sodium 30 ML SOLUTION 15 ML PO (02:20)
[2020-08-13 03:51] VITALS: BP 171/105; PULSE 106; RESP 14; TEMP 37.1; O2SAT 97
--- NOTE | 2020-08-13 03:55 | PC.NURSE ---
Addendum entered by Reema Riley 08/13/20 05:40: PLAN TO BE TRANSFERRED TO [facility], NOT [facility]. AWAITING CALL BACK FROM ON-CALL THORACIC SURGEON AT [facility]. Original Note: PATIENT PLACED ON ARMATURE WINDER, PER . PREPARING FOR TRANSFER TO [facility] FOR PNEUMOPERICARDIUM AND PNEUMOMEDIASTINUM WITHOUT PNEUMOTHORAX NOTED ON CT SCAN. PATIENT REPORTS CONSTANT PAIN AT [facility], STARTED TODAY. 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 NO SHORTNESS OF BREATH/RESPIRATORY DISTRESS. LUNGS CLEAR TO AUSCULTATION BILATERALLY THROUGHOUT. PATIENT IS COOPERATIVE BUT ANXIOUS ABOUT BEING TRANSFERRED TO [facility] AND NEW DIAGNOSIS. DISCUSSED DIAGNOSIS WITH PATIENT. AWAITING TRANSPORT/TRANSFER VIA AMBULANCE. IV ACCESS REMAINS PATENT, WILL CONTINUE TO MONITOR. PATIENT IS CURRENTLY TACHYCARDIC, BUT ANXIOUS 105-115 ON MONITOR. BP ELEVATED 171/105 WHILE THIS RN WAS IN ROOM. AFEBRILE. WILL CONTINUE TO MONITOR.
[2020-08-13 04:00] VITALS: BP 176/102; PULSE 103; RESP 16; O2SAT 97
[2020-08-13 04:15] VITALS: BP 175/97; PULSE 107; RESP 16; O2SAT 96
[2020-08-13 04:29] VITALS: BP 169/94; PULSE 102; RESP 16; O2SAT 97
[2020-08-13 04:48] LABS: COVID-19 Test Negative (Negative)
[2020-08-13 05:00] VITALS: BP 161/96; PULSE 106; RESP 20; O2SAT 96
--- NOTE | 2020-08-13 05:19 | PC.NURSE ---
PATIENT'S BROTHER (SINCERE ROBIN) GIVEN UPDATE REGARDING PATIENT, PER PATIENT'S REQUEST. PHONE #: [phone]; SINCERE STATES THAT HE'S OKAY WITH BEING LEFT A DETAILED VOICEMAIL WITH UPDATES IF HE IS UNABLE TO ANSWER PHONE DURING FUTURE CALLS. AWARE OF PLAN TO TRANSFER TO [facility] IN [place], [place], PENDING AMBULANCE TRANSFER.
--- NOTE | 2020-08-13 05:41 | PC.NURSE ---
PATIENT AMBULATES WITH STEADY GAIT OUT OF BED TO BATHROOM WITHOUT ISSUE. AWAITING TRANSFER TO [facility]. WILL CONTINUE TO MONITOR.
--- NOTE | 2020-08-13 06:11 | PC.NURSE ---
NURSE TO NURSE REPORT GIVEN TO ROBB RIOJAS AT [facility]. CALLED SINCERE (PATIENT'S BROTHER) TO ALERT HIM THAT PATIENT HAS BEEN TRANSFERED TO [facility], LEFT VOICEMAIL REQUESTED. TRANSFERED VIA [facility].
== END 2020-08-13 06:15 | disposition short-term general hospital (02) ==
PROVIDERS: Emergency Medicine; Emergency Provider Internal Medicine; PCP Internal Medicine Sports Medicine
DX: J98.2 Interstitial emphysema (principal); R10.13 Epigastric pain; R00.0 Tachycardia, unspecified; Z79.899 Other long term (current) drug therapy
CPT/HCPCS: 36415; 71260; 74176; 80048; 80076; 81001; 83690; 84484; 85025; 87635; 93005; 96361; 96374; 96375; 99285; J2405; Q9967

== ENCOUNTER 2020-10-10 11:05 | Emergency (ER) | payer OTHER, SELFPAY ==
--- NOTE | ~2020-10-10 | CT_ITS ---
EXAMINATION: CT ANGIOGRAM OF THE CHEST WITH AND WITHOUT CONTRAST (CT PULMONARY ANGIOGRAM FOR PE) CLINICAL INFORMATION: 25-year-old male patient with a abdominal pain. History of EtOH and pancreatitis. Also complains of pleuritic chest pain. Prior history of pneumomediastinum. COMPARISON: No pertinent prior studies are available for comparison. TECHNIQUE: Prior to contrast administration, noncontrast localization images were obtained. Subsequently, multidetector volumetric imaging was performed from the thoracic inlet to below the diaphragms following the administration of 85 mL Omnipaque 350 intravenous contrast. In addition, multidetector volumetric imaging was performed from the lung bases to the pubic symphysis No contrast reaction reported Sagittal, coronal, and MIP oblique sagittal reformatted images were obtained on the CT workstation, uploaded to PACS, and reviewed. Dose: 475 mGy-cm for chest 663 mGy-cm for abdomen and pelvis FINDINGS: EDUCATION TECHNICIAN: Normal. QUALITY OF STUDY/CONTRAST BOLUS: Fair. PULMONARY ARTERIES: No central or segmental pulmonary emboli. THORACIC AORTA: No aneurysm or dissection. LUNG: No focal consolidation, nodules or masses. PLEURA: No pleural effusion or pneumothorax. MEDIASTINUM: Normal heart size. No pericardial effusion. No hilar or mediastinal lymphadenopathy. No evidence of septal bowing or right heart strain. No evidence of pneumomediastinum. CHEST WALL/AXILLA: No axillary or internal mammary lymphadenopathy. LIVER, GALLBLADDER, AND BILIARY TREE: The liver is normal in size, shape, and attenuation. No focal hepatic lesion or biliary ductal dilatation is present. There is focal fatty infiltration adjacent to the ligamentum teres, a normal variant. The gallbladder is unremarkable with no evidence of radiopaque gallstones, gallbladder wall thickening, or obvious pericholecystic inflammatory changes. No evidence of reflux of contrast into the hepatic veins indicating elevated right atrial pressures. PANCREAS: Normal; no mass or surrounding fluid. SPLEEN: Normal size. No focal lesion. ADRENAL GLANDS: Normal; no mass. KIDNEYS AND URETERS: The kidneys are normal in size, shape, and attenuation. No hydronephrosis, hydroureter, or calculi. Abdominal imaging was obtained in the medullary phase of the contrast injection. GASTROINTESTINAL TRACT: Stomach and small bowel non-dilated. No colonic wall thickening or pericolonic inflammatory changes. The pancreas is normal in size showing no periappendiceal inflammatory reaction. Tiny appendicoliths are present in the appendiceal lumen. No free fluid. ABDOMINAL WALL: No hernia seen. LYMPHOVASCULAR STRUCTURES: No lymphadenopathy. The aorta is normal in caliber. BLADDER: No focal mass or wall thickening seen. No bladder calculi. PELVIC VISCERA: Unremarkable. OSSEOUS STRUCTURES: No acute or suspicious osseous abnormality. Bilateral spondylolysis is present at L5. CT/CT angio chest PE protocol IMPRESSION: 1. No evidence of pulmonary embolism. 2. No sign of inflammatory disease in the abdomen or pelvis. 3. Tiny appendicoliths. VTE: Negative.
--- NOTE | ~2020-10-10 | CT_ITS ---
EXAMINATION: CT ANGIOGRAM OF THE CHEST WITH AND WITHOUT CONTRAST (CT PULMONARY ANGIOGRAM FOR PE) CLINICAL INFORMATION: 25-year-old male patient with a abdominal pain. History of EtOH and pancreatitis. Also complains of pleuritic chest pain. Prior history of pneumomediastinum. COMPARISON: No pertinent prior studies are available for comparison. TECHNIQUE: Prior to contrast administration, noncontrast localization images were obtained. Subsequently, multidetector volumetric imaging was performed from the thoracic inlet to below the diaphragms following the administration of 85 mL Omnipaque 350 intravenous contrast. In addition, multidetector volumetric imaging was performed from the lung bases to the pubic symphysis No contrast reaction reported Sagittal, coronal, and MIP oblique sagittal reformatted images were obtained on the CT workstation, uploaded to PACS, and reviewed. 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 QUALITY OF STUDY/CONTRAST BOLUS: Fair. PULMONARY ARTERIES: No central or segmental pulmonary emboli. THORACIC AORTA: No aneurysm or dissection. LUNG: No focal consolidation, nodules or masses. PLEURA: No pleural effusion or pneumothorax. MEDIASTINUM: Normal heart size. No pericardial effusion. No hilar or mediastinal lymphadenopathy. No evidence of septal bowing or right heart strain. No evidence of pneumomediastinum. CHEST WALL/AXILLA: No axillary or internal mammary lymphadenopathy. LIVER, GALLBLADDER, AND BILIARY TREE: The liver is normal in size, shape, and attenuation. No focal hepatic lesion or biliary ductal dilatation is present. There is focal fatty infiltration adjacent to the ligamentum teres, a normal variant. The gallbladder is unremarkable with no evidence of radiopaque gallstones, gallbladder wall thickening, or obvious pericholecystic inflammatory changes. No evidence of reflux of contrast into the hepatic veins indicating elevated right atrial pressures. PANCREAS: Normal; no mass or surrounding fluid. SPLEEN: Normal size. No focal lesion. ADRENAL GLANDS: Normal; no mass. KIDNEYS AND URETERS: The kidneys are normal in size, shape, and attenuation. No hydronephrosis, hydroureter, or calculi. Abdominal imaging was obtained in the medullary phase of the contrast injection. GASTROINTESTINAL TRACT: Stomach and small bowel non-dilated. No colonic wall thickening or pericolonic inflammatory changes. The pancreas is normal in size showing no periappendiceal inflammatory reaction. Tiny appendicoliths are present in the appendiceal lumen. No free fluid. ABDOMINAL WALL: No hernia seen. LYMPHOVASCULAR STRUCTURES: No lymphadenopathy. The aorta is normal in caliber. BLADDER: No focal mass or wall thickening seen. No bladder calculi. PELVIC VISCERA: Unremarkable. OSSEOUS STRUCTURES: No acute or suspicious osseous abnormality. Bilateral spondylolysis is present at L5. CT/CT abdomen pelvis w con IMPRESSION: 1. No evidence of pulmonary embolism. 2. No sign of inflammatory disease in the abdomen or pelvis. 3. Tiny appendicoliths. VTE: Negative.
[2020-10-10 12:02] VITALS: BP 158/72; PULSE 72; RESP 18; TEMP 36.1; O2SAT 100; BMI 33.2
[2020-10-10 12:31] VITALS: BP 160/92; PULSE 118; RESP 18; O2SAT 97
--- NOTE | 2020-10-10 12:31 | ECG_ITS ---
Test Reason : EPIGASTRIC PAIN Blood Pressure : / mmHG Vent. Rate : 118 BPM Atrial Rate : 118 BPM P-R Int : 144 ms QRS Dur : 080 ms QT Int : 312 ms P-R-T Axes : 051 079 032 degrees QTc Int : 437 ms Sinus tachycardia Possible Left atrial enlargement Cannot rule out Anterior infarct (cited on or before 10-OCT-2020) Abnormal ECG When compared with ECG of 12-AUG-2020 18:03, No significant change was found Referred By: Margaret Romero Electronically Signed By:Tobin Miranda
--- NOTE | 2020-10-10 12:33 | ED_ITS ---
HPI - Chest Pain General Chief Complaint: ETOH/Substance Use Stated Complaint: ABD PAIN Time Seen by Provider: 10/10/20 11:35 Source: patient and old records reviewed Mode of arrival: ambulatory Limitations: no limitations History of Present Illness HPI narrative: 25 yo male with hx of depression and longstanding ETOH - has had gastritis, pancreatitis, pneumomediastinum in the past - at this time c/o 1 week of upper abdominal pain, pleuritic chest pain, vomiting, increased depression, today noted streaks of blood in emesis MD complaint: other (chest pain / epigastric pain) Pertinent past history: other (pneumomediastinum) Onset (ago): week(s) (1) Timing of current episode: episodic Prior episodes: Yes Onset: during rest, during exertion and after eating Pain location: right chest Pain radiation: none Severity: similar to previous episodes Quality: sharp Relieving factors: nothing Exacerbating factors: inspiration, eating and movement Context: other (recent heavy ETOH use) Associated symptoms: nausea and vomiting Treatment prior to arrival: other (taking his omeprazole) Related Data Home Medications Medication Instructions Recorded Confirmed hydroxyzine HCl 1 tab PO TID PRN 10/10/20 omeprazole 1 cap PO DAILY 10/10/20 Previous Rx's Medication Instructions Recorded famotidine [Pepcid] 20 mg PO DAILY PRN #30 tab 07/08/20 magnesium oxide 400 mg PO DAILY 10 Days #10 tab 07/08/20 chlordiazepoxide HCl 50 mg PO Q4H PRN #20 cap 10/10/20 ondansetron 4 mg PO Q8H PRN #20 tab 10/10/20 Allergies Allergy/AdvReac Type Severity Reaction Status Date / Time No Known Allergies Allergy Verified 07/08/20 08:36 Review of Systems Review of Systems: Constitutional : No Weight loss, No Fever, No Chills ENT/Mouth : No sore throat, No Rhinorrhea Eyes: No Eye Pain, No Swelling Cardiovascular : pos Chest Pain, no SOB, no Dyspnea on Exertion, No Orthopnea, No Edema, No Palpitations Respiratory : No Cough, No Sputum Gastrointestinal : pos Nausea, pos Vomiting, No Diarrhea, No abdominal Pain, No Hematochezia, No Melena, has had flecks of blood noted in emesis today Genitourinary : No Dysuria, No Urinary Frequency Musculoskeletal : No joint pain, No Myalgias, No Joint Swelling Skin : No Skin Lesions, No rash Neuro : No Weakness, No Numbness, No Dizziness, No Headache Psych : No Anxiety/Panic, pos Depression Heme/Lymph: No Bruising, No Lymphadenopathy Endocrine : No Polyuria, No Polydipsia All other systems reviewed and are negative [facility] Past Medical History Attestation statement: The following information was validated with the patient. Medical History Depression Pancreatitis Pneumomediastinum Social History Social History Alcohol intake: current Alcohol intake frequency: holidays/special occasions only Alcohol type: beer Smoking Status: Never smoker Substance Use Type: Marijuana Advance Directives: No Advance Directives Information Provided: No Physical Exam Vital Signs: Vital Signs: Last Vital Signs Temp 97 F 10/10/20 12:02 Pulse 113 H 10/10/20 13:45 Resp 18 10/10/20 13:45 BP 138/76 10/10/20 13:45 Pulse Ox 98 10/10/20 13:45 Body Mass Index 33.2 Appearance: Alert. Oriented X3. Anxious mild acute distress. Eyes: Pupils equal, round and reactive to light. ENT: Pharynx normal. Neck: Normal inspection. Neck supple. CVS: Normal heart rate and rhythm. Pulses normal. Respiratory: No respiratory distress. Breath sounds normal. Abdomen: Soft and mild epigastric ttp Skin: Skin warm and dry. Normal skin color. Normal skin turgor. Extremities: No lower extremity edema. No calf ttp Neuro: Oriented X 3. No motor deficit. No sensory deficit. Course Course Course Narrative: lactic acidosis likely due to ETOH and not infection or severe sepsis repeat 2mg IV ativan, no prior withdrawal seizures labs drastically improved, his lactic acid down to 2.7, he feels better, has some residual tachycardia but BP stable and he states he doesn't want to stay in the hospital he has not had vomiting here, H/H stable, patient wants to talk to CARE team - declined medical admission, will sign out to Dr. Crawford pending CARE team and reassess DC MDM - Chest Pain MDM Narrative Medical decision making narrative: 25 yo male with hx of heavy ETOH abuse here with pleuritic chest pain hx of pneumomediastinum, upper abdominal pain hx of gastritis, increased n/v and noted some streaks of blood today - at this time will obtain labs, CT of chest and abdomen - IV protonix, IV ativan, dispo per results and findings - he notes depression but no SI Lab Data Result diagrams: 10/10/20 12:49 10/10/20 15:18 Labs: Lab Results 10/10/20 10/10/20 10/10/20 Range/Units 12:48 12:48 12:48 WBC (4.8-10.8) X10*3/uL RBC (4.60-5.80) X10*6/uL Hgb (14.0-18.0) g/dl Hct (42-52) % MCV (80-98) fL MCH (27.0-33.0) pg MCHC (31.0-36.0) g/dl RDW (11.0-16.0) % Plt Count (160-400) X10*3/uL MPV (9.4-12.4) fL Immature Gran % (Auto) (0.0-0.4) % Neut % (Auto) (45-73) % Lymph % (Auto) (20-40) % [place] % (Auto) (2-11) % Eos % (Auto) (0-4) % Baso % (Auto) (0-2) % Lymph # (Auto) (1.2-4.9) X10*3/uL [place] # (Auto) (0.1-1.2) X10*3/uL Eos # (Auto) (0.0-0.4) X10*3/uL Baso # (Auto) (0.0-0.2) X10*3/uL Abs Immat Gran (auto) (0.00-0.03) X10*3/uL Absolute Neuts (auto) (2.0-8.3) X10*3/uL Absolute Nucleated RBC (0.0-0.012) X10*3/uL Nucleated RBC % (auto) (0.0-0.2) /100WBC Smear Tech's Comments PT 12.8 (10.8-13.0) SEC INR 1.1 (0.9-1.1) APTT 25.2 (24.1-38.0) SEC Sodium 140 (135-145) mmol/L Potassium 5.9 H (3.3-5.1) mmol/L Chloride 101 (96-108) mmol/L Carbon Dioxide 21 L (22-29) mmol/L Anion Gap 24 H (12-20) BUN 9 (9-16) mg/dL Creatinine 1.12 (0.5-1.4) mg/dL Estim Creat Clear Calc 113.0 Estimated GFR > 60 Random Glucose 111 D (60-115) mg/dL Lactic Acid 5.2 H* (0.5-2.0) mmol/L Lactic Acid Fup @ 2Hr (0.5-2.0) mmol/L Calcium 9.2 (8.4-10.2) mg/dL Magnesium 1.4 L* (1.6-2.6) mg/dL Total Bilirubin 1.8 H (0.0-1.0) mg/dL Direct Bilirubin 0.9 H (0.0-0.5) mg/dL AST 58 H (5-37) U/L ALT 66 H (0-40) U/L Alkaline Phosphatase 43 (39-117) U/L Troponin I High Sens (<3.5-35.0) ng/L Total Protein 7.3 (6.5-8.0) g/dL Albumin 4.7 (3.5-5.0) g/dL Lipase (8-78) U/L Ethyl Alcohol mg/dL COVID-19 (JESSICA) (Negative) COVID-19 Clin Com 10/10/20 10/10/20 10/10/20 Range/Units 12:48 12:48 12:49 WBC 7.4 (4.8-10.8) X10*3/uL RBC 5.66 (4.60-5.80) X10*6/uL Hgb 17.2 (14.0-18.0) g/dl Hct 52.3 H (42-52) % MCV 92.4 (80-98) fL MCH 30.4 (27.0-33.0) pg MCHC 32.9 (31.0-36.0) g/dl RDW 14.1 (11.0-16.0) % Plt Count 299 D (160-400) X10*3/uL MPV 9.9 (9.4-12.4) fL Immature Gran % (Auto) 0.7 H (0.0-0.4) % Neut % (Auto) 82.3 H (45-73) % Lymph % (Auto) 9.3 L (20-40) % [place] % (Auto) 5.7 (2-11) % Eos % (Auto) 0.1 (0-4) % Baso % (Auto) 1.9 (0-2) % Lymph # (Auto) 0.7 L (1.2-4.9) X10*3/uL [place] # (Auto) 0.4 (0.1-1.2) X10*3/uL Eos # (Auto) 0.0 (0.0-0.4) X10*3/uL Baso # (Auto) 0.1 (0.0-0.2) X10*3/uL Abs Immat Gran (auto) 0.05 H (0.00-0.03) X10*3/uL Absolute Neuts (auto) 6.1 (2.0-8.3) X10*3/uL Absolute Nucleated RBC 0.000 (0.0-0.012) X10*3/uL Nucleated RBC % (auto) 0.0 (0.0-0.2) /100WBC Smear Tech's Comments VERIFIED PT (10.8-13.0) SEC INR (0.9-1.1) APTT (24.1-38.0) SEC Sodium (135-145) mmol/L Potassium (3.3-5.1) mmol/L Chloride (96-108) mmol/L Carbon Dioxide (22-29) mmol/L Anion Gap (12-20) BUN (9-16) mg/dL Creatinine (0.5-1.4) mg/dL Estim Creat Clear Calc Estimated GFR Random Glucose (60-115) mg/dL Lactic Acid (0.5-2.0) mmol/L Lactic Acid Fup @ 2Hr (0.5-2.0) mmol/L Calcium (8.4-10.2) mg/dL Magnesium (1.6-2.6) mg/dL Total Bilirubin (0.0-1.0) mg/dL Direct Bilirubin (0.0-0.5) mg/dL AST (5-37) U/L ALT (0-40) U/L Alkaline Phosphatase (39-117) U/L Troponin I High Sens 29.6 D (<3.5-35.0) ng/L Total Protein (6.5-8.0) g/dL Albumin (3.5-5.0) g/dL Lipase 31 (8-78) U/L Ethyl Alcohol mg/dL COVID-19 (JESSICA) (Negative) COVID-19 Clin Com 10/10/20 10/10/20 10/10/20 Range/Units 12:49 13:28 15:18 WBC (4.8-10.8) X10*3/uL RBC (4.60-5.80) X10*6/uL Hgb (14.0-18.0) g/dl Hct (42-52) % MCV (80-98) fL MCH (27.0-33.0) pg MCHC (31.0-36.0) g/dl RDW (11.0-16.0) % Plt Count (160-400) X10*3/uL MPV (9.4-12.4) fL Immature Gran % (Auto) (0.0-0.4) % Neut % (Auto) (45-73) % Lymph % (Auto) (20-40) % [place] % (Auto) (2-11) % Eos % (Auto) (0-4) % Baso % (Auto) (0-2) % Lymph # (Auto) (1.2-4.9) X10*3/uL [place] # (Auto) (0.1-1.2) X10*3/uL Eos # (Auto) (0.0-0.4) X10*3/uL Baso # (Auto) (0.0-0.2) X10*3/uL Abs Immat Gran (auto) (0.00-0.03) X10*3/uL Absolute Neuts (auto) (2.0-8.3) X10*3/uL Absolute Nucleated RBC (0.0-0.012) X10*3/uL Nucleated RBC % (auto) (0.0-0.2) /100WBC Smear Tech's Comments PT (10.8-13.0) SEC INR (0.9-1.1) APTT (24.1-38.0) SEC Sodium 138 (135-145) mmol/L Potassium 5.3 H (3.3-5.1) mmol/L Chloride 104 (96-108) mmol/L Carbon Dioxide 23 (22-29) mmol/L Anion Gap 16 (12-20) BUN 8 L (9-16) mg/dL Creatinine 0.96 (0.5-1.4) mg/dL Estim Creat Clear Calc 131.8 Estimated GFR > 60 Random Glucose 150 H D (60-115) mg/dL Lactic Acid (0.5-2.0) mmol/L Lactic Acid Fup @ 2Hr (0.5-2.0) mmol/L Calcium 8.0 L D (8.4-10.2) mg/dL Magnesium (1.6-2.6) mg/dL Total Bilirubin (0.0-1.0) mg/dL Direct Bilirubin (0.0-0.5) mg/dL AST (5-37) U/L ALT (0-40) U/L Alkaline Phosphatase (39-117) U/L Troponin I High Sens (<3.5-35.0) ng/L Total Protein (6.5-8.0) g/dL Albumin (3.5-5.0) g/dL Lipase (8-78) U/L Ethyl Alcohol < 10 mg/dL COVID-19 (JESSICA) Negative (Negative) COVID-19 Clin Com See Note 10/10/20 Range/Units 15:18 WBC (4.8-10.8) X10*3/uL RBC (4.60-5.80) X10*6/uL Hgb (14.0-18.0) g/dl Hct (42-52) % MCV (80-98) fL MCH (27.0-33.0) pg MCHC (31.0-36.0) g/dl RDW (11.0-16.0) % Plt Count (160-400) X10*3/uL MPV (9.4-12.4) fL Immature Gran % (Auto) (0.0-0.4) % Neut % (Auto) (45-73) % Lymph % (Auto) (20-40) % [place] % (Auto) (2-11) % Eos % (Auto) (0-4) % Baso % (Auto) (0-2) % Lymph # (Auto) (1.2-4.9) X10*3/uL [place] # (Auto) (0.1-1.2) X10*3/uL Eos # (Auto) (0.0-0.4) X10*3/uL Baso # (Auto) (0.0-0.2) X10*3/uL Abs Immat Gran (auto) (0.00-0.03) X10*3/uL Absolute Neuts (auto) (2.0-8.3) X10*3/uL Absolute Nucleated RBC (0.0-0.012) X10*3/uL Nucleated RBC % (auto) (0.0-0.2) /100WBC Smear Tech's Comments PT (10.8-13.0) SEC INR (0.9-1.1) APTT (24.1-38.0) SEC Sodium (135-145) mmol/L Potassium (3.3-5.1) mmol/L Chloride (96-108) mmol/L Carbon Dioxide (22-29) mmol/L Anion Gap (12-20) BUN (9-16) mg/dL Creatinine (0.5-1.4) mg/dL Estim Creat Clear Calc Estimated GFR Random Glucose (60-115) mg/dL Lactic Acid (0.5-2.0) mmol/L Lactic Acid Fup @ 2Hr 2.7 H* (0.5-2.0) mmol/L Calcium (8.4-10.2) mg/dL Magnesium (1.6-2.6) mg/dL Total Bilirubin (0.0-1.0) mg/dL Direct Bilirubin (0.0-0.5) mg/dL AST (5-37) U/L ALT (0-40) U/L Alkaline Phosphatase (39-117) U/L Troponin I High Sens (<3.5-35.0) ng/L Total Protein (6.5-8.0) g/dL Albumin (3.5-5.0) g/dL Lipase (8-78) U/L Ethyl Alcohol mg/dL COVID-19 (JESSICA) (Negative) COVID-19 Clin Com ECG Data ECG #1: Attestation: I personally reviewed and interpreted this ECG as follows: ECG interpretation date: 10/10/20 ECG interpretation time: 12:50 Interpretation: Rate: 118 Rhythm: sinus tachycardia [place]: normal Normal P waves. Normal [place]. Normal QRS complex. ST T wave : normal , no [place] qTC: normal prior studies: no acute ischemia The study has been interpreted contemporaneously by me. . Critical Care Time Critical Care Time Critical Care Time: Yes Total Critical Care Time: 60 Attestation: repeat IV ativan 2mg, 3L of IVF I attest to this time spent taking care of the patient Discharge Plan Discharge Clinical Impression: Hypomagnesemia, Acidosis, lactic, Anxiety, Dehydration, Acute hyperkalemia Alcohol withdrawal syndrome Qualifiers: Complication of substance-induced condition: uncomplicated Qualified Code(s): F10.230 - Alcohol dependence with withdrawal, uncomplicated Acute alcoholic gastritis Qualifiers: Gastritis bleeding: with bleeding Qualified Code(s): K29.21 - Alcoholic gastritis with bleeding Vomiting Qualifiers: Vomiting type: unspecified Vomiting Intractability: non-intractable Nausea pres ence: with nausea Qualified Code(s): R11.2 - Nausea with vomiting, unspecified Instructions: Gastritis (ED), Hyperkalemia (ED), Acute Nausea and Vomiting (ED), Alcohol Withdrawal (ED) Additional Instructions: return to ED for any worsening symptoms or concerns Prescriptions: New ondansetron 4 mg tablet,disintegrating 4 mg PO Q8H PRN (Reason: nausea and vomiting) Qty: 20 RF: 0 chlordiazepoxide HCl 25 mg capsule 50 mg PO Q4H PRN (Reason: alcohol withdrawal) Qty: 20 RF: 0 No Action famotidine [Pepcid] 20 mg tablet 20 mg PO DAILY PRN (Reason: abdominal discomfort) Qty: 30 RF: 0 magnesium oxide 400 mg magnesium tablet 400 mg PO DAILY 10 Days Qty: 10 RF: 0 omeprazole 20 mg capsule,delayed release(DR/EC) 1 cap PO DAILY RF: 0 hydroxyzine HCl 25 mg tablet 1 tab PO TID PRN (Reason: anxiety) RF: 0
[2020-10-10 12:55] LABS: Basophils Absolute Auto 0.1 X10*3/uL (0.0-0.2); Basophils Percent Auto 1.9 % (0-2); Eosinophils Percent Auto 0.1 % (0-4); Hematocrit 52.3 % (42-52); Hemoglobin 17.2 g/dl (14.0-18.0); Imm Gran Abs Auto 0.05 X10*3/uL (0.00-0.03); Imm Gran Pct Auto 0.7 % (0.0-0.4); Lymphocytes Absolute Auto 0.7 X10*3/uL (1.2-4.9); Lymphocytes Percent Auto 9.3 % (20-40); MANUAL DIFF FLAG SCAN; Mean Corpuscular HGB Conc 32.9 g/dl (31.0-36.0); Mean Corpuscular Hemoglobin 30.4 pg (27.0-33.0); Mean Corpuscular Volume 92.4 fL (80-98); Mean Platelet Volume 9.9 fL (9.4-12.4); Monocytes Absolute Auto 0.4 X10*3/uL (0.1-1.2); Monocytes Percent Auto 5.7 % (2-11); Neutrophils Absolute Auto 6.1 X10*3/uL (2.0-8.3); Neutrophils Percent Auto 82.3 % (45-73); Platelet Count 299 X10*3/uL (160-400); Red Blood Count 5.66 X10*6/uL (4.60-5.80); Red Cell Distribution Width 14.1 % (11.0-16.0); SCAN SMEAR FLAG 1; White Blood Count 7.4 X10*3/uL (4.8-10.8)
[2020-10-10] MEDS: 0.9 % Sodium Chloride 1,000 ML 999 ML IVCONT ×3 (13:05→13:42)
[2020-10-10] MEDS: Pantoprazole Sodium 40 MG/10 ML VIAL IVPUSH (13:06)
[2020-10-10] MEDS: LORazepam 2 MG/ML VIAL IVPUSH ×2 (13:06→15:59)
[2020-10-10] MEDS: ondansetron HCL 4 MG/2 ML VIAL IVPUSH (13:06)
[2020-10-10 13:09] LABS: INTERNATIONAL NORM RATIO 1.1 (0.9-1.1); Prothrombin Time 12.8 SEC (10.8-13.0)
[2020-10-10 13:11] LABS: Partial Thromboplastin Time 25.2 SEC (24.1-38.0)
[2020-10-10 13:15] LABS: COVID-19 Test Negative (Negative)
[2020-10-10 13:18] LABS: Lactic Acid 5.2 mmol/L (0.5-2.0)
[2020-10-10 13:22] LABS: Lipase 31 U/L (8-78)
[2020-10-10 13:25] LABS: Troponin-I High Sensitivity 29.6 ng/L (<3.5-35.0)
[2020-10-10 13:39] LABS: SLIDE REVIEW VERIFIED
[2020-10-10 13:45] VITALS: BP 138/76; PULSE 113; RESP 18; O2SAT 98
[2020-10-10 13:52] LABS: Alanine Aminotransferase 66 U/L (0-40); Albumin Level 4.7 g/dL (3.5-5.0); Alkaline Phosphatase 43 U/L (39-117); Anion Gap 24 (12-20); Aspartate Amino Transferase 58 U/L (5-37); Bilirubin Direct 0.9 mg/dL (0.0-0.5); Bilirubin Total 1.8 mg/dL (0.0-1.0); Blood Urea Nitrogen 9 mg/dL (9-16); Calcium 9.2 mg/dL (8.4-10.2); Carbon Dioxide 21 mmol/L (22-29); Chloride 101 mmol/L (96-108); Estimated Glomerular Filt Rate > 60; Glucose Random 111 mg/dL (60-115); Magnesium 1.4 mg/dL (1.6-2.6); Potassium 5.9 mmol/L (3.3-5.1); Sodium 140 mmol/L (135-145); Total Protein 7.3 g/dL (6.5-8.0)
[2020-10-10 13:55] LABS: Ethanol < 10 mg/dL
[2020-10-10] MEDS: Calcium Gluconate/NaCl,Iso-Osm 2 GM/100 ML PLAST..BAG IV (14:27)
[2020-10-10] MEDS: Magnesium Sulfate/H2O 2 GM/50 ML PIGGYBACK IV (14:27)
[2020-10-10] MEDS: iohexoL 350 MG/ML 100 ML INFUS..BTL IV (14:27)
[2020-10-10] MEDS: Sodium Polystyrene Sulfon/Sorb 15 GM/60 ML ORAL.SUSP 30 GM PO (14:27)
[2020-10-10 14:54] LABS: Reflex Lactate? Lactic Acid Added
[2020-10-10 15:49] LABS: ~Lactic Acid-LAB USE ONLY 2.7 mmol/L (0.5-2.0)
[2020-10-10 15:54] LABS: Anion Gap 16 (12-20); Blood Urea Nitrogen 8 mg/dL (9-16); Carbon Dioxide 23 mmol/L (22-29); Chloride 104 mmol/L (96-108); Creatinine Clr Calc Pharmacy 131.8; Estimated Glomerular Filt Rate > 60; Glucose Random 150 mg/dL (60-115); Potassium 5.3 mmol/L (3.3-5.1); Sodium 138 mmol/L (135-145)
[2020-10-10 16:25] VITALS: PULSE 107; RESP 18; O2SAT 99
--- NOTE | 2020-10-10 16:26 | PC.NURSE ---
Rae, Care Team at bedside.
[2020-10-10] MEDS: chlordiazePOXIDE HCl 25 MG CAPSULE 50 MG PO (16:35)
[2020-10-10 16:50] VITALS: BP 163/100; PULSE 118; RESP 16; TEMP 36.6; O2SAT 99
--- NOTE | 2020-10-10 17:06 | MHC.CARE ---
CARE team support requested by ED physician re: pt who self presented to ED endorsing increased depression (no SI) and escalating alcohol use as a means of coping. Pt has also been vomiting blood and received a full medical work up. Pt reported that he has been struggling with depression since the of his mother 4 years ago, and has since encountered many other contributing events and situations. Pt stated that his grandmother had 5 heart attacks last year and he has been unable to see her, his aunt has MS with a 2 year prognosis, and a 5 year relationship ended this past summer. Pt stated that he had lived in [place] prior to relocating to the [facility] to be closer to his grandmother and other family 2 years ago. Pt grew up in [place], which is where his mother lived until she , however she grew up in [place] and has family here. Pt reported that prior to moving to [place], he had drank socially, exercised regularly, took better care of himself, and was happier. Pt attributed the demise of his previous relationship in part due to his alcohol use. Pt reported that he only drinks on bad days, and that he doesn't drink on days that he works or when his girlfriend is staying over. Pt estimated that he drinks a bottle of hard liquor on those days (750mL). 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 and is slated to begin nursing school at [employer] this year. Pt is help seeking at this time in order to gain control of his current situation. Pt would like to stop drinking entirely and figure out a treatment combination that help manage his depression. This fha underwriter provided pt with contact information and background details for 3 therapists in the [facility] that provide therapy (in person and remote) with specializations in alcohol use, depression, and grief and loss. Pt was also given information for [facility] and [facility]. Due to pt's current job, treatment recommendations were picked based on the decreased likelihood that he would encounter patients that he has worked with on the in psychiatric unit. ED physician updated re: outcome of consultation and recommendations given.
[2020-10-10 17:22] LABS: Reflex Lactate? 2 Y
[2020-10-10 17:22] LABS: Amphetamine Screen Urine Not Detected (Not Detect); Barbiturates, Urine Not Detected (Not Detect); Benzodiazepines Screen Urine Not Detected (Not Detect); Cannabinoid Screen Urine Not Detected (Not Detect); Cocaine Screen Urine Not Detected (Not Detect); Opiate Screen Urine Not Detected (Not Detect); Phencyclidine Screen Urine Not Detected (Not Detect)
== END 2020-10-10 17:38 | disposition home or self-care (01) ==
PROVIDERS: Emergency Provider Emergency Medicine
DX: F10.230 Alcohol dependence with withdrawal, uncomplicated (principal); K29.21 Alcoholic gastritis with bleeding; R11.2 Nausea with vomiting, unspecified; E83.42 Hypomagnesemia; E87.2 Acidosis; F41.1 Generalized anxiety disorder; F43.0 Acute stress reaction; E86.0 Dehydration; E87.5 Hyperkalemia; F33.1 Major depressive disorder, recurrent, moderate; R10.13 Epigastric pain; Z20.822 Contact with and (suspected) exposure to COVID-19; Z79.899 Other long term (current) drug therapy
CPT/HCPCS: 36415; 71275; 74177; 80048; 80076; 80307; 80320; 83605; 83690; 83735; 84484; 85025; 85610; 85730; 87040; 87635; 93005; 96361; 96365; 96375; 96376; 99285; 99291; J0610; J2060; J2405; J3475; Q9967

== ENCOUNTER 2020-11-30 16:35 | Emergency (ER) | payer OTHER, SELFPAY ==
--- NOTE | 2020-11-30 | ECG_ITS ---
Test Reason : CHEST PAIN Blood Pressure : / mmHG Vent. Rate : 097 BPM Atrial Rate : 097 BPM P-R Int : 158 ms QRS Dur : 088 ms QT Int : 342 ms P-R-T Axes : 043 064 039 degrees QTc Int : 434 ms Normal sinus rhythm Nonspecific T wave abnormality Abnormal ECG When compared with ECG of 10-OCT-2020 12:48, Nonspecific T wave abnormality now evident in Lateral leads Referred By: Robby Sanchez Electronically Signed By:DAYAN LISA
[2020-11-30 17:39] VITALS: BP 154/99; PULSE 105; RESP 18; TEMP 35.9; O2SAT 95; BMI 31.3
[2020-11-30 18:22] LABS: Ethanol < 10 mg/dL
[2020-11-30 18:23] LABS: Basophils Percent Auto 0.4 % (0-2); Hemoglobin 18.6 g/dl (14.0-18.0); Imm Gran Pct Auto 0.9 % (0.0-0.4); Lymphocytes Absolute Auto 0.5 X10*3/uL (1.2-4.9); Lymphocytes Percent Auto 4.4 % (20-40); MANUAL DIFF FLAG SCAN; Mean Corpuscular HGB Conc 32.9 g/dl (31.0-36.0); Mean Corpuscular Hemoglobin 28.5 pg (27.0-33.0); Mean Corpuscular Volume 86.7 fL (80-98); Mean Platelet Volume 9.7 fL (9.4-12.4); Monocytes Absolute Auto 0.5 X10*3/uL (0.1-1.2); Monocytes Percent Auto 5.1 % (2-11); Neutrophils Absolute Auto 9.5 X10*3/uL (2.0-8.3); Neutrophils Percent Auto 89.2 % (45-73); Platelet Count 293 X10*3/uL (160-400); Red Blood Count 6.53 X10*6/uL (4.60-5.80); Red Cell Distribution Width 14.6 % (11.0-16.0); SCAN SMEAR FLAG 1; White Blood Count 10.7 X10*3/uL (4.8-10.8)
[2020-11-30 18:28] LABS: Hematocrit 56.6 % (42-52)
[2020-11-30 18:37] LABS: Alanine Aminotransferase 89 U/L (0-40); Albumin Level 4.5 g/dL (3.5-5.0); Alkaline Phosphatase 46 U/L (39-117); Anion Gap 19 (12-20); Aspartate Amino Transferase 73 U/L (5-37); Bilirubin Direct 0.4 mg/dL (0.0-0.5); Bilirubin Total 0.9 mg/dL (0.0-1.0); Blood Urea Nitrogen 12 mg/dL (9-16); Carbon Dioxide 26 mmol/L (22-29); Chloride 98 mmol/L (96-108); Creatinine Clr Calc Pharmacy 138.5; Estimated Glomerular Filt Rate > 60; Glucose Random 143 mg/dL (60-115); Potassium 4.5 mmol/L (3.3-5.1); Sodium 138 mmol/L (135-145)
[2020-11-30 18:41] LABS: SLIDE REVIEW VERIFIED
[2020-11-30 19:01] LABS: Lipase 3820 U/L (8-78)
== END 2020-11-30 20:02 | disposition left against medical advice (07) ==
PROVIDERS: Emergency Provider Emergency Medicine
DX: R10.9 Unspecified abdominal pain (principal); F12.90 Cannabis use, unspecified, uncomplicated
CPT/HCPCS: 36415; 80048; 80076; 80320; 83690; 85025; 93005; 99282; 99283